=== PATIENT | male | born 2000 | race Caucasian/White ===

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

== ENCOUNTER 2018-03-14 18:10 | Emergency (ER) | payer BC ==
[2018-03-14] MEDS ORDERED: NS 0.9% 1000 ML* 1,000 ML IV ONE (18:26)
--- NOTE | 2018-03-14 18:51 | ED ---
Dizziness - HPI Summary HPI Summary: 17 male presents to ED brought in by ambulance with complaints of dizziness, lightheadedness and nausea that began just prior to arrival while working out. Patient states this is happened to him many times in the past. States he feels dizzy and like a "zombie" daily. Has been trying to see a neurologist for the past couple of months. Denies loss of consciousness. Denies hitting his head or any injuries. States he feels like he is spinning rather than the room is spinning. Is able to walk and bear weight. Admits to a diffuse headache. Denies any recent illness. Past medical history significant for chronic hives and which he takes hydroxyzine daily. No other medications or complaints. No chest pain or shortness of breath. No nausea, vomiting, weakness, numbness/ tingling, memory or concentration loss. No recent trauma or injury. States he does not relate it to any specific movement, position or activity to make his symptoms worse or better. - History Of Current Complaint Chief Complaint: EDDizziness Stated Complaint: DIZZY Time Seen by Provider: 03/14/18 18:35 Hx Obtained From: Patient Onset/Duration: Still Present Timing: Weeks - Months Severity Initially: Mild Severity Currently: Mild Character: Head Spinning, Lightheaded, Dizzy Aggravating Factor(s): Exertion Alleviating Factor(s): Nothing Associated Signs And Symptoms: Positive: Nausea. Negative: Vomiting, Diarrhea, Chest Pain, Palpitations, Unsteady Gait, Visual Changes, Decreased Oral Intake, Change In Medication, Fever, Inability to Walk, Slurred Speech - Allergies/Home Medications Allergies/Adverse Reactions: Allergies Allergy/AdvReac Type Severity Reaction Status Date / Time No Known Allergies Allergy Verified 03/14/18 18:21 Home Medications: Home Medications LevoCETirizine TAB (NF) [Xyzal TAB (NF)] 5 mg PO DAILY 03/14/18 [History Confirmed 03/14/18] hydrOXYzine HCL TAB* [Atarax 10 MG TAB*] 5 mg PO DAILY 03/14/18 [History Confirmed 03/14/18] PMH/Surg Hx/FS Hx/Imm Hx Endocrine/Hematology History: Denies: Hx Anticoagulant Therapy, Hx Diabetes Cardiovascular History: Denies: Hx Hypertension, Other Cardiovascular Problems/Disorders Respiratory History: Reports: Hx Seasonal Allergies - chronic hives Denies: Hx Asthma - Surgical History Surgery Procedure, Year, and Place: Club foot surgeries - Immunization History Immunizations Up to Date: Yes Infectious Disease History: No Infectious Disease History: Denies: Traveled Outside the [place] in Last 30 Days - Family History Known Family History: Positive: Hypertension, Diabetes - Social History Alcohol Use: None Hx Substance Use: No Substance Use Type: Reports: None Hx Tobacco Use: No Smoking Status (MU): Never Smoked Tobacco Review of Systems Constitutional: Negative Eyes: Negative ENT: Negative Cardiovascular: Negative Respiratory: Negative Positive: Nausea Musculoskeletal: Negative Skin: Negative Positive: Weakness - dizziness lightheadedness Positive: Anxious All Other Systems Reviewed And Are Negative: Yes Physical Exam Triage Information Reviewed: Yes Vital Signs On Initial Exam: Initial Vitals Pulse Pulse Ox 86 98 03/14/18 18:15 03/14/18 18:15 Blood pressure 125/62 Respirations 19 Temp 99.4 Vital Signs Reviewed: Yes Appearance: Positive: Well-Appearing, No Pain Distress, Well-Nourished Skin: Positive: Warm, Skin Color Reflects Adequate Perfusion, Dry. Negative: Cold, Numb, Cyanosis @, Pale, Erythema @ Head/Face: Positive: Normal Head/Face Inspection. Negative: Temporal Artery Tenderness, Scalp Eyes: Positive: Normal, EOMI, CHINEDU, Conjunctiva Clear, Other: - No nystagmus, normal visual acuity, normal funduscopic exam although it was limited due to myosis ENT: Positive: Normal ENT inspection, Hearing grossly normal, Pharynx normal, TMs normal, Uvula midline. Negative: Nasal congestion, Nasal drainage, TM bulging, TM dull, TM red, Tonsillar swelling, Tonsillar exudate Dental: Negative: Cervical Lymphadenopathy Neck: Positive: Supple, Nontender, No Lymphadenopathy. Negative: Nuchal Rigidity, Tenderness @ Respiratory/Lung Sounds: Positive: Clear to Auscultation, Breath Sounds Present. Negative: Rales, Rhonchi, Wheezes Cardiovascular: Positive: Normal, RRR, Pulses are Symmetrical in both Upper and Lower Extremities. Negative: Murmur, Rub Abdomen Description: Positive: Nontender, Soft Bowel Sounds: Positive: Present Musculoskeletal: Positive: Normal, Strength/ROM Intact. Negative: Limited @, Interruption @, Abnormal @, Pain @, Edema Left, Edema Right Neurological: Positive: Normal - Normal neurologic exam memory and concentration are intact, Sensory/Motor Intact, Alert, Oriented to Person Place , Time, CN Intact II-III, Reflexes Intact, NV Bundle Intact Distally, Normal Gait, Heel to Toe, Finger to Nose, Facial Symmetry, Speech Normal. Negative: Disoriented, Facial Droop, Slurred Speech, Rhomberg Psychiatric: Positive: Anxious - Pratibha Coma Scale Best Eye Response: 4 - Spontaneous Best Motor Response: 6 - Obeys Commands Best Verbal Response: 5 - Oriented Coma Scale Total: 15 Diagnostics - Vital Signs Vital Signs Temp Pulse Resp BP Pulse Ox 03/14/18 18:49 99 03/14/18 18:17 99.7 F 82 13 122/62 97 03/14/18 18:15 86 98 - Laboratory Result Diagrams: 03/14/18 18:35 03/14/18 18:35 Lab Statement: Any lab studies that have been ordered have been reviewed, and results considered in the medical decision making process. - Radiology chest Xray Interpretation: No Acute Changes - NO EVIDENCE FOR ACUTE DISEASE. Radiology Interpretation Completed By: Radiologist - CT brain CT Interpretation: No Acute Changes - NO EVIDENCE FOR ACUTE INTRACRANIAL ABNORMALITY. CT Interpretation Completed By: Radiologist Re-Evaluation - Re-Evaluation First Eval Re-Evaluation Time: 07:55 Change: Improved - updated on results, feeling better laying down Second Eval Re-Evaluation Time: 20:51 Change: Improved - improved after medication, updated on plan and results, ready to be d/c Dizzy Course/Dx - Course Course Of Treatment: Labs, CT, x-ray obtained all of which were unremarkable without significant finding. Normal physical exam and neurologic exam. Normal vital signs. Given meclizine and Zofran patient had significant relief. Orthostatic vital signs were obtained and negative. Patient was able to walk without difficulty. Patient states she started to feel this way years ago once he began taking antihistamines for his chronic hives. Possible medication side effect due to taking hydroxyzine daily and feeling drowsy. Along with anxiety noted throughout ED stay. Recommended speaking with director of diagnostic imaging about alternatives. Will follow up with neurologist and primary care provider tomorrow other etiologies such as vertigo, bppv, pseudotumor cerebri, cardiac. No other emergent concerns or etiologies at this time. Aware worsening signs and symptoms to watch out for. - Diagnoses Differential Diagnosis/HQI/PQRI: Anxiety, Benign Paroxysmal Positional Vertigo, Vasovagal Reaction, Other - Orthostatic BP, dizziness, lightheadedness, medication side effect Provider Diagnoses: Dizziness, Medication side effect Discharge - Sign-Out/Discharge Documenting (check all that apply): Discharge - Discharge Plan Condition: Improved Disposition: HOME Patient Education Materials: Hydroxyzine (By mouth), Vertigo (ED), Dizziness ( ED) Referrals: [facility] - Jose MORAN [Primary Care Provider] - Matt Slade MD [Medical Doctor] - Additional Instructions: Recommend follow-up with director of diagnostic imaging to discuss other medication options. Increase fluids and stay well-hydrated. Follow-up with PCP for recheck in one week. If symptoms persist or worsen please make an appointment with neurologist. - Billing Disposition and Condition Condition: IMPROVED Disposition: HOME
[2018-03-14 18:59] LABS: ABS Basophils 0 10^3/ul (0-0.2); ABS Eosinophils 0.1 10^3/ul (0-0.6); ABS Lymphocytes 1.5 10^3/ul (1.0-4.8); ABS Monocytes 0.4 10^3/ul (0-0.8); ABS Neutrophils 4.5 10^3/ul (1.5-7.7); ABS Nucleated RBC 0 10^3/ul; Eosinophil % 1.2 % (0-6); Hematocrit 43 % (42-52); Hemoglobin 14.4 g/dl (14.0-18.0); Lymphocyte % 23.7 % (25-47); Mean Corpuscular HGB Conc 33 g/dl (31-36); Mean Corpuscular Hemoglobin 28 pg (27-31); Mean Corpuscular Volume 85 fL (80-94); Mean Platelet Volume 7.7 um3 (7.4-10.4); Nucleated Red Blood Cells % 0; Platelet Count 251 10^3/ul (150-450); Red Blood Count 5.08 10^6/ul (4.0-5.4); Red Cell Distribution Width 14 % (10.5-15); White Blood Count 6.5 10^3/ul (3.5-10.8)
[2018-03-14 19:09] LABS: INR 1.08 (0.77-1.02)
[2018-03-14 19:19] LABS: EGFR Non-African American 103.4 (>60)
--- NOTE | 2018-03-14 19:31 | RAD ---
INDICATION: Dizziness, pressure in the head. COMPARISON: There are no prior studies available for comparison. TECHNIQUE: Contiguous axial sections of the brain were obtained from the skull base to the vertex without contrast. FINDINGS: The ventricles, cisterns and sulci are within normal limits. No significant focal abnormality or mass effect is seen. There is no evidence for hemorrhage. No significant focal osseous abnormality is seen. The visualized portion of the paranasal sinuses and mastoid air cells appear clear. IMPRESSION: NO EVIDENCE FOR ACUTE INTRACRANIAL ABNORMALITY.
--- NOTE | 2018-03-14 19:34 | RAD ---
INDICATION: Near syncope. COMPARISON: Comparison is made with prior chest x-ray study from September 22, 2017. TECHNIQUE: A portable view of the chest was obtained. FINDINGS: Cardiac and mediastinal contours appear to be within normal limits. The lungs are clear. No pleural effusion is seen. IMPRESSION: NO EVIDENCE FOR ACUTE DISEASE.
[2018-03-14] MEDS ORDERED: Meclizine TAB* 12.5 MG PO ONE (20:10)
[2018-03-14] MEDS ORDERED: Ondansetron ODT TAB* 4 MG PO ONE (20:11)
[2018-03-14 21:15] VITALS: BP 116/54
== END 2018-03-14 21:13 | disposition home or self-care (01) ==
LOC: ED 18:10
DX: R42 Dizziness and giddiness (principal); R11.0 Nausea; T43.595A Adverse effect of other antipsychotics and neuroleptics, initial encounter; Y92.9 Unspecified place or not applicable
CPT/HCPCS: 36415; 70450; 71045; 80053; 82550; 82553; 83605; 83690; 83735; 83880; 84443; 84484; 85025; 85610; 85730; 86140; 93005; 96360; 99282; A9270-GY

== ENCOUNTER 2018-04-02 13:26 | Emergency (ER) | payer BC ==
[2018-04-02 14:01] LABS: ABS Basophils 0 10^3/ul (0-0.2); ABS Eosinophils 0.1 10^3/ul (0-0.6); ABS Lymphocytes 1.6 10^3/ul (1.0-4.8); ABS Monocytes 0.4 10^3/ul (0-0.8); ABS Neutrophils 3.8 10^3/ul (1.5-7.7); ABS Nucleated RBC 0 10^3/ul; Hematocrit 43 % (42-52); Hemoglobin 14.6 g/dl (14.0-18.0); Lymphocyte % 27.5 % (25-47); Mean Corpuscular HGB Conc 34 g/dl (31-36); Mean Corpuscular Hemoglobin 29 pg (27-31); Mean Corpuscular Volume 86 fL (80-94); Mean Platelet Volume 7.7 um3 (7.4-10.4); Nucleated Red Blood Cells % 0; Platelet Count 238 10^3/ul (150-450); Red Blood Count 5.03 10^6/ul (4.0-5.4); Red Cell Distribution Width 14 % (10.5-15); White Blood Count 5.9 10^3/ul (3.5-10.8)
[2018-04-02 14:46] LABS: EGFR Non-African American 99.7 (>60)
[2018-04-02 15:34] LABS: Urine Appearance Clear; Urine Blood Negative (Negative); Urine Color Straw; Urine Ketones Negative (Negative); Urine Protein Negative (Negative); Urine Specific Gravity 1.006 (1.010-1.030); Urine Urobilinogen Negative (Negative)
[2018-04-02 20:57] VITALS: BP 115/55
--- NOTE | 2018-04-02 22:47 | ED ---
Sumaya Reeves Nilda, scribed for Luis Sandoval MD on 04/02/18 at 1359 . Psychiatric Complaint - HPI Summary HPI Summary: This patient is a 17 year old M presenting to [facility] with a chief complaint of constant exacerbated severe anxiety for the past few days. Symptoms aggravated by school and alleviated by nothing. Pt states he began Lexapro last week without relief. Pt states he also took old prescription of Ativan today without relief. - History Of Current Complaint Chief Complaint: EDMentalHealth Time Seen by Provider: 04/02/18 13:41 Hx Obtained From: Patient Onset/Duration: Sudden Onset, Lasting Days, Still Present Timing: Constant Severity Currently: Severe Character: Anxious Aggravating Factor(s): Recent Stress Alleviating Factor(s): Nothing Related History: Positive For: Prior Psychiatric Issues Recent Stressor(s): school - Allergies/Home Medications Allergies/Adverse Reactions: Allergies Allergy/AdvReac Type Severity Reaction Status Date / Time No Known Allergies Allergy Verified 04/02/18 13:30 Home Medications: Home Medications Escitalopram Oxalate [Lexapro 10 mg] 10 mg PO DAILY 04/02/18 [History Confirmed 04/02/18] LORazepam TAB(*) [Ativan 0.5 MG TAB (*)] 0.5 mg PO DAILY PRN 04/02/18 [History Confirmed 04/02/18] PMH/Surg Hx/FS Hx/Imm Hx Endocrine/Hematology History: Denies: Hx Anticoagulant Therapy, Hx Diabetes Cardiovascular History: Denies: Hx Hypertension, Other Cardiovascular Problems/Disorders Respiratory History: Reports: Hx Seasonal Allergies - chronic hives Denies: Hx Asthma Psychiatric History: Reports: Hx Anxiety - Surgical History Surgery Procedure, Year, and Place: Club foot surgeries Infectious Disease History: No Infectious Disease History: Denies: Traveled Outside the [place] in Last 30 Days - Family History Known Family History: Positive: Hypertension, Diabetes - Social History Occupation: Student Alcohol Use: None Hx Substance Use: No Substance Use Type: Reports: None Hx Tobacco Use: No Smoking Status (MU): Never Smoked Tobacco Review of Systems Negative: Shortness Of Breath Positive: Anxious All Other Systems Reviewed And Are Negative: Yes Physical Exam - Summary Physical Exam Summary: General: well-appearing, no pain distress Skin: warm, color reflects adequate perfusion, dry Head: normal Eyes: EOMI, CHINEDU ENT: normal Neck: supple, nontender Respiratory: CTA, breath sounds present Cardiovascular: RRR Abdomen: soft, nontender Bowel: present Musculoskeletal: normal, strength/ROM intact Neurological: normal, sensory/motor intact, A&O x3 Psychological: affect/mood appropriate Triage Information Reviewed: Yes Vital Signs On Initial Exam: Initial Vitals Temp Pulse Resp BP Pulse Ox 98.6 F 70 16 126/51 98 04/02/18 13:28 04/02/18 13:28 04/02/18 13:28 04/02/18 13:28 04/02/18 13:28 Vital Signs Reviewed: Yes Diagnostics - Vital Signs Vital Signs Temp Pulse Resp BP Pulse Ox 04/02/18 13:28 98.6 F 70 16 126/51 98 - Laboratory Lab Results: Lab Results 04/02/18 04/02/18 04/02/18 Range/Units 13:51 13:51 15:25 WBC 5.9 (3.5-10.8) 10^3/ul RBC 5.03 (4.0-5.4) 10^6/ul Hgb 14.6 (14.0-18.0) g/dl Hct 43 (42-52) % MCV 86 (80-94) fL MCH 29 (27-31) pg MCHC 34 (31-36) g/dl RDW 14 (10.5-15) % Plt Count 238 (150-450) 10^3/ul MPV 7.7 (7.4-10.4) um3 Neut % (Auto) 63.9 (38-83) % Lymph % (Auto) 27.5 (25-47) % [place] % (Auto) 7.2 H (0-7) % Eos % (Auto) 1.0 (0-6) % Baso % (Auto) 0.4 (0-2) % Absolute Neuts (auto) 3.8 (1.5-7.7) 10^3/ul Absolute Lymphs (auto) 1.6 (1.0-4.8) 10^3/ul Absolute Monos (auto) 0.4 (0-0.8) 10^3/ul Absolute Eos (auto) 0.1 (0-0.6) 10^3/ul Absolute Basos (auto) 0 (0-0.2) 10^3/ul Absolute Nucleated RBC 0 10^3/ul Nucleated RBC % 0 Sodium 139 (139-145) mmol/L Potassium 4.1 (3.5-5.0) mmol/L Chloride 103 (101-111) mmol/L Carbon Dioxide 30 (22-32) mmol/L Anion Gap 6 (2-11) mmol/L BUN 15 (6-24) mg/dL Creatinine 0.97 (0.67-1.17) mg/dL Est GFR ( Amer) 128.2 (>60) Est GFR (Non-Af Amer) 99.7 (>60) BUN/Creatinine Ratio 15.5 (8-20) Glucose 95 (70-100) mg/dL Calcium 10.0 (8.6-10.3) mg/dL Total Bilirubin 0.50 (0.2-1.0) mg/dL AST 23 (13-39) U/L ALT 13 (7-52) U/L Alkaline Phosphatase 55 (34-104) U/L Total Protein 7.9 (6.4-8.9) g/dL Albumin 4.9 (3.2-5.2) g/dL Globulin 3.0 (2-4) g/dL Albumin/Globulin Ratio 1.6 (1-3) TSH 1.33 (0.34-5.60) mcIU/mL Urine Color Straw Urine Appearance Clear Urine pH 6.0 (5-9) Ur Specific Lamar 1.006 L (1.010-1.030) Urine Protein Negative (Negative) Urine Ketones Negative (Negative) Urine Blood Negative (Negative) Urine Nitrate Negative (Negative) Urine Bilirubin Negative (Negative) Urine Urobilinogen Negative (Negative) Ur Leukocyte Esterase Negative (Negative) Urine Glucose Negative (Negative) Salicylates < 2.50 (<30) mg/dL Urine Opiates Screen (None Detect) Acetaminophen < 15 mcg/mL Ur Barbiturates Screen (None Detect) Ur Phencyclidine Scrn (None Detect) Ur Amphetamines Screen (None Detect) U Benzodiazepines Scrn (None Detect) Urine Cocaine Screen (None Detect) U Cannabinoids Screen (None Detect) Serum Alcohol < 10 (<10) mg/dL 04/02/18 Range/Units 15:25 WBC (3.5-10.8) 10^3/ul RBC (4.0-5.4) 10^6/ul Hgb (14.0-18.0) g/dl Hct (42-52) % MCV (80-94) fL MCH (27-31) pg MCHC (31-36) g/dl RDW (10.5-15) % Plt Count (150-450) 10^3/ul MPV (7.4-10.4) um3 Neut % (Auto) (38-83) % Lymph % (Auto) (25-47) % [place] % (Auto) (0-7) % Eos % (Auto) (0-6) % Baso % (Auto) (0-2) % Absolute Neuts (auto) (1.5-7.7) 10^3/ul Absolute Lymphs (auto) (1.0-4.8) 10^3/ul Absolute Monos (auto) (0-0.8) 10^3/ul Absolute Eos (auto) (0-0.6) 10^3/ul Absolute Basos (auto) (0-0.2) 10^3/ul Absolute Nucleated RBC 10^3/ul Nucleated RBC % Sodium (139-145) mmol/L Potassium (3.5-5.0) mmol/L Chloride (101-111) mmol/L Carbon Dioxide (22-32) mmol/L Anion Gap (2-11) mmol/L BUN (6-24) mg/dL Creatinine (0.67-1.17) mg/dL Est GFR ( Amer) (>60) Est GFR (Non-Af Amer) (>60) BUN/Creatinine Ratio (8-20) Glucose (70-100) mg/dL Calcium (8.6-10.3) mg/dL Total Bilirubin (0.2-1.0) mg/dL AST (13-39) U/L ALT (7-52) U/L Alkaline Phosphatase (34-104) U/L Total Protein (6.4-8.9) g/dL Albumin (3.2-5.2) g/dL Globulin (2-4) g/dL Albumin/Globulin Ratio (1-3) TSH (0.34-5.60) mcIU/mL Urine Color Urine Appearance Urine pH (5-9) Ur Specific Lamar (1.010-1.030) Urine Protein (Negative) Urine Ketones (Negative) Urine Blood (Negative) Urine Nitrate (Negative) Urine Bilirubin (Negative) Urine Urobilinogen (Negative) Ur Leukocyte Esterase (Negative) Urine Glucose (Negative) Salicylates (<30) mg/dL Urine Opiates Screen None detected (None Detect) Acetaminophen mcg/mL Ur Barbiturates Screen None detected (None Detect) Ur Phencyclidine Scrn None detected (None Detect) Ur Amphetamines Screen None detected (None Detect) U Benzodiazepines Scrn None detected (None Detect) Urine Cocaine Screen None detected (None Detect) U Cannabinoids Screen None detected (None Detect) Serum Alcohol (<10) mg/dL Result Diagrams: 04/02/18 13:51 04/02/18 13:51 Lab Statement: Any lab studies that have been ordered have been reviewed, and results considered in the medical decision making process. Re-Evaluation - Re-Evaluation First Eval Re-Evaluation Time: 16:30 Comment: Mother called concerned for child. Pt states he is not suicidal but wants further treatment for his severe anxiety. He does not want more benzo. Course/Dx - Course Course Of Treatment: Pt medically cleared for MHE at 14:36. PATIENT DENIES SI, WISHES ADDITIONAL RESOURCES TO IMPROVE HIS ANXIETY. DISCHARGE HOME STABLE. Assessment/Plan: Medications reviewed. - Differential Dx/Clinical Impression Provider Diagnosis: Anxiety Discharge - Sign-Out/Discharge Documenting (check all that apply): Discharge/Admit/Transfer - Discharge Plan Condition: Stable Disposition: HOME Patient Education Materials: Anxiety (ED) Forms: *School Release Referrals: [facility] - Jose MORAN [Primary Care Provider] - Additional Instructions: Per your request, you are cleared for release prior to completion of a mental health evaluation and do not require inpatient psychiatric hospitalization at this time. Please go to nearest emergency room or call 911 if safety concerns arise or condition worsens. We recommend you follow up with your previously scheduled appointment at [facility] on April 04 as you indicated during this visit. IMPORTANT PHONE NUMBERS: [facility] Behavioral Services Unit: [facility] Emergency Room Flex Unit: [facility] Police: [facility]: [place] Police Department: Suicide Prevention and Crisis Services: The Chat: Text (free and confidential online crisis service sponsored by [facility] Suicide Prevention, available Monday-Monday 6pm 9pm) National Suicide Prevention Lifeline: (708) 072-TALK (8089) National Crisis Text Line: Text MAGUI to 580352 [facility] Mental Health Clinic: [facility] Outreach for Older Adults: [facility] Mental Health Association: EFFIE Concepcion [facility]: [facility] Public Safety: [facility]: - During business hours Press 2 for mental health concerns or 3 to schedule an appointment - After business hours Your call will be answered by a brand representative from an answering service, who will connect you with the on-call health care provider within 30 minutes. If you unable to reach the answering service, call the [employer] Police and request that the dispatcher contact the on-call provider directly. - Lets Talk is a drop-in service that offers informal, confidential~ consultation with a [facility] counselor. Counselors hold walk-in hours at various on-campus locations Monday through Monday during the academic year. Stop by any location to speak with a counselor about concerns, get help problem- solving, and learn more about counseling services at [facility] and other resources available to you at [employer]. Dates and locations are listed on the [facility] website. - EARS (Empathy, Assistance and Referral Service) is a peer-led counseling and training program open to all members of the [employer] community and is anonymous, free, confidential. EARS is staffed by undergraduate and international student advisor counselors, as well as [employer] staff. For additional information contact [phone] ([phone]). [facility] is located at [address] [place] [address], at the corner of [facility] and [facility] on [facility] [facility]. Business hours are Monday, Monday, & Monday:~ 8:30 am 5:00 pm; Monday:~ 10:00 am 5:00 pm; Monday: 10:00 am 4:00 pm Students in Crisis: The Kennel Manager The [employer] crisis-management system is coordinated through the Offices of the [employer] for Student and Academic Services and the central station operator, and is affiliated with other units whose responsibilities focus on helping students. Call [employer] Police, [phone], at any time to initiate this process. For each situation, a [employer]roft staff member who is appointed as a crisis manage rarranges for the services of the community support team for groups of students affected by a crisis. arranges for the services of the community support team for groups of students affected by a crisis. consults with, advises, and facilitates communication among individuals and units providing direct support. coordinates the flow of information to appropriate university units while protecting confidentiality and privacy in sensitive personal matters. coordinates the services provided to a student or others affected by the crisis. provides direct service to those affected by the crisis, such as personal support, information, and referrals, and is often the main contact for parents. provides follow-up services when needed. LOCAL PSYCHIATRIST: If you unable to secure an appointment with a psychiatrist at [facility] in the near future and are still interested in discussing anti-anxiety medications, we have provided a list of local psychiatrist you may contact if you desire. Lonny Espinosa MD - Janell Baker MD - Brit Lacy MD - Joann Hatfield - Mamadou Maldonado MD - Delmar Wilson MD - - Billing Disposition and Condition Condition: STABLE Disposition: HOME The documentation as recorded by the Sumaya garcia Nilda accurately reflects the service I personally performed and the decisions made by me, Luis Sandoval MD.
== END 2018-04-02 21:28 | disposition home or self-care (01) ==
LOC: ED 13:26
DX: F41.9 Anxiety disorder, unspecified (principal)
CPT/HCPCS: 36415; 80053; 80307; 80320; 80329; 81003; 84443; 85025; 99282; G0480

== ENCOUNTER 2018-10-29 04:49 | Emergency (ER) | payer BC ==
--- NOTE | 2018-10-29 05:56 | ED ---
Psychiatric Complaint - HPI Summary HPI Summary: Patient is a 18-year-old male who presents emergency Department with complaints of worsening depression and anxiety times several days. Patient notes he was taking Cymbalta and then was switched to Zoloft by his psychiatrist. Per patient's request he was switched back to Cymbalta this week. Patient feels switching medications he has had "internal agitation" and has felt more depressed. Patient notes increase in sleep and was unable to get out of bed yesterday. Patient denies suicidal or homicidal ideations. Patient states he has been admitted for behavioral health in the past. Patient currently sees psychiatrist at [facility]. Symptoms are moderate in severity. No current modifying factors. Denies past medical history. Otherwise denies recent illness. Denies drug or alcohol abuse. - History Of Current Complaint Chief Complaint: EDGeneral Time Seen by Provider: 10/29/18 05:35 Hx Obtained From: Patient - Allergies/Home Medications Allergies/Adverse Reactions: Allergies Allergy/AdvReac Type Severity Reaction Status Date / Time No Known Allergies Allergy Verified 04/02/18 13:30 Home Medications: Home Medications Sertraline HCl [Zoloft] 50 mg PO DAILY 10/29/18 [History Confirmed 10/29/18] clonazePAM [Clonazepam] 0.5 mg PO SEE INSTRUCTIONS 10/29/18 [History Confirmed 10/29/18] PMH/Surg Hx/FS Hx/Imm Hx Previously Healthy: Yes Endocrine/Hematology History: Denies: Hx Anticoagulant Therapy, Hx Diabetes Cardiovascular History: Denies: Hx Hypertension, Other Cardiovascular Problems/Disorders Respiratory History: Reports: Hx Seasonal Allergies - chronic hives Denies: Hx Asthma Psychiatric History: Reports: Hx Anxiety - Surgical History Surgery Procedure, Year, and Place: Club foot surgeries Infectious Disease History: No Infectious Disease History: Denies: Traveled Outside the [place] in Last 30 Days - Family History Known Family History: Positive: Hypertension, Diabetes - Social History Occupation: Student Lives: Dormitory/Roommates Alcohol Use: Rare Hx Substance Use: No Substance Use Type: Reports: None Hx Tobacco Use: No Smoking Status (MU): Never Smoked Tobacco Review of Systems Positive: Fever Eyes: Negative ENT: Negative Cardiovascular: Negative Respiratory: Negative Gastrointestinal: Negative Neurological: Negative Positive: Anxious, Depressed All Other Systems Reviewed And Are Negative: Yes Physical Exam Triage Information Reviewed: Yes Vital Signs On Initial Exam: Initial Vitals Temp Pulse Resp BP Pulse Ox 98.2 F 78 22 102/57 100 10/29/18 04:58 10/29/18 04:58 10/29/18 04:58 10/29/18 04:58 10/29/18 04:58 Vital Signs Reviewed: Yes Appearance: Positive: Well-Appearing - Pt. sitting on bed in NAD. Poor eye contact. Cooperative. Friend present. Skin: Positive: Warm, Dry Head/Face: Positive: Normal Head/Face Inspection Eyes: Positive: Normal, EOMI, CHINEDU, Conjunctiva Clear ENT: Positive: TMs normal Neck: Positive: Supple Respiratory/Lung Sounds: Positive: Clear to Auscultation, Breath Sounds Present Cardiovascular: Positive: Normal, RRR Musculoskeletal: Positive: Normal, Strength/ROM Intact Neurological: Positive: Normal, CN Intact II-III Psychiatric: Positive: Depressed Diagnostics - Vital Signs Vital Signs Temp Pulse Resp BP Pulse Ox 10/29/18 04:58 98.2 F 78 22 102/57 100 - Laboratory Result Diagrams: 10/29/18 06:32 10/29/18 06:32 Lab Statement: Any lab studies that have been ordered have been reviewed, and results considered in the medical decision making process. Course/Dx - Course Course Of Treatment: Pt. presenting for worsening depression and anxiety. Will obtain MHE. Pt. note suicidal or homicidal. Cooperative at this time. Pt. agress with MHE. Pt. underwent MHE and psychiatry was consulted. Pt. was scheduled for a therapy appointment today at 1630. Psychiatrist recommends rx atarax 25mg QID for anxiety. Pt. to return to ER if symptoms change or worsen. At time of dc pt. is sitting on bed laughing with friend. Pt. dc home stable. - Differential Dx/Clinical Impression Differential Diagnosis/HQI/PQRI: Positive: Anxiety, Depression Provider Diagnosis: Anxiety Discharge - Sign-Out/Discharge Documenting (check all that apply): Patient Departure - Discharge Plan Condition: Improved Disposition: HOME Prescriptions: hydrOXYzine HCL TAB* [Atarax 25 MG TAB*] 25 mg PO QID PRN #12 tab PRN Reason: Anxiety Patient Education Materials: Anxiety (ED) Referrals: [facility] [Outside] Additional Instructions: Follow up with your therapy appointment today as scheduled Hydroxyzine as directed for anxiety Return to ER if symptoms change or worsen - Billing Disposition and Condition Condition: IMPROVED Disposition: Home
[2018-10-29 06:19] LABS: Urine Appearance Cloudy; Urine Blood Negative (Negative); Urine Color Yellow; Urine Ketones Negative (Negative); Urine Protein Negative (Negative); Urine Specific Gravity 1.029 (1.010-1.030); Urine Urobilinogen Negative (Negative)
[2018-10-29 06:48] LABS: ABS Basophils 0 10^3/ul (0-0.2); ABS Eosinophils 0.2 10^3/ul (0-0.6); ABS Lymphocytes 1.8 10^3/ul (1.0-4.8); ABS Monocytes 0.5 10^3/ul (0-0.8); ABS Neutrophils 5.9 10^3/ul (1.5-7.7); ABS Nucleated RBC 0 10^3/ul; Eosinophil % 2.3 %; Hematocrit 40 % (42-52); Hemoglobin 13.6 g/dl (14.0-18.0); Lymphocyte % 21.9 %; Mean Corpuscular HGB Conc 34 g/dl (31-36); Mean Corpuscular Hemoglobin 29 pg (27-31); Mean Corpuscular Volume 85 fL (80-94); Mean Platelet Volume 7.3 fL (7.4-10.4); Nucleated Red Blood Cells % 0.1; Platelet Count 265 10^3/ul (150-450); Red Blood Count 4.72 10^6/ul (4.00-5.40); Red Cell Distribution Width 13 % (10.5-15); White Blood Count 8.4 10^3/ul (3.5-10.8)
[2018-10-29] MEDS ORDERED: Ondansetron TAB* 4 MG PO ONE (09:02)
[2018-10-29] MEDS ORDERED: LORazepam TAB(*) 1 MG PO ONE (09:02)
[2018-10-29 14:16] VITALS: BP 103/78
== END 2018-10-29 14:15 | disposition home or self-care (01) ==
LOC: ED 04:49
DX: F41.9 Anxiety disorder, unspecified (principal)
CPT/HCPCS: 36415; 80053; 80307; 80320; 80329; 81003; 84443; 85025; 99284; A9270-GY; G0480

== ENCOUNTER 2019-01-08 23:10 | Emergency (ER) | payer BC ==
[2019-01-08] MEDS ORDERED: NS 0.9% 1000 ML** 1,000 ML IV ONE (23:20)
[2019-01-08] MEDS ORDERED: Ondansetron INJ* 2 MG/ML VIAL IV ONE (23:20)
[2019-01-08] MEDS ORDERED: Metoclopramide IV* 5 MG/ML 2 ML VIAL IV SLOW PU ONE (23:39)
[2019-01-08] MEDS ORDERED: Ketorolac INJ* 30 MG/ML 1 ML VIAL IV PUSH ONE (23:39)
[2019-01-08 23:47] LABS: ABS Basophils 0 10^3/ul (0-0.2); ABS Eosinophils 0 10^3/ul (0-0.6); ABS Lymphocytes 0.6 10^3/ul (1.0-4.8); ABS Neutrophils 9.2 10^3/ul (1.5-7.7); ABS Nucleated RBC 0 10^3/ul; Eosinophil % 0 %; Hematocrit 50 % (42-52); Hemoglobin 17.5 g/dl (14.0-18.0); Lymphocyte % 5.2 %; Mean Corpuscular HGB Conc 35 g/dl (31-36); Mean Corpuscular Hemoglobin 29 pg (27-31); Mean Corpuscular Volume 84 fL (80-94); Mean Platelet Volume 7.5 fL (7.4-10.4); Nucleated Red Blood Cells % 0.1; Platelet Count 324 10^3/ul (150-450); Red Blood Count 6.01 10^6/ul (4.00-5.40); Red Cell Distribution Width 14 % (10.5-15); White Blood Count 10.8 10^3/ul (3.5-10.8)
[2019-01-09 00:05] LABS: Albumin 5.6 g/dL (3.2-5.2); Albumin/Globulin Ratio 1.6 (1-3); BUN/Creatinine Ratio 21.4 (8-20); Calcium 10.4 mg/dL (8.6-10.3); EGFR African American 88.3 (>60); Globulin 3.5 g/dL (2-4); Potassium 3.8 mmol/L (3.5-5.0); Total Bilirubin 0.8 mg/dL (0.2-1.0); Total Protein 9.1 g/dL (6.4-8.9)
[2019-01-09] MEDS ORDERED: NS 0.9% 1000 ML** 1,000 ML IV ONE (00:06)
[2019-01-09] MEDS ORDERED: hydrOXYzine HCL TAB* 10 MG PO ONE (00:07)
--- NOTE | 2019-01-09 00:07 | ED ---
GI/ HPI - HPI Summary HPI Summary: 18-year-old male presents to nausea vomiting diarrhea for the past 24 hours. He admits to generalized abdominal pain. He denies anyone else being sick. Denies eating anything different. States this happened past. Does not smoke any marijuana. Denies any blood in stool. No fevers. No chest pain shortness breath or cough. He states he tried Zofran at home with no relief. He states he feels very weak. Has no medical conditions. - History of Current Complaint Chief Complaint: EDNauseaVomitDiarrh Time Seen by Provider: 01/08/19 23:21 Stated Complaint: NAUSEA/VOMITING Pain Intensity: 3 - Allergy/Home Medications Allergies/Adverse Reactions: Allergies Allergy/AdvReac Type Severity Reaction Status Date / Time No Known Allergies Allergy Verified 04/02/18 13:30 Home Medications: Home Medications hydrOXYzine HCL TAB* [Atarax 25 MG TAB*] 10 mg PO QID PRN 01/08/19 [History Confirmed 01/08/19] PMH/Surg Hx/FS Hx/Imm Hx Endocrine/Hematology History: Denies: Hx Anticoagulant Therapy, Hx Diabetes Cardiovascular History: Denies: Hx Hypertension, Other Cardiovascular Problems/Disorders Respiratory History: Reports: Hx Seasonal Allergies - chronic hives Denies: Hx Asthma Psychiatric History: Reports: Hx Anxiety Denies: Hx Eating Disorder - Surgical History Surgery Procedure, Year, and Place: Club foot surgeries Infectious Disease History: No Infectious Disease History: Denies: Traveled Outside the [place] in Last 30 Days - Family History Known Family History: Positive: Hypertension, Diabetes - Social History Alcohol Use: Rare Hx Substance Use: No Substance Use Type: Reports: None Hx Tobacco Use: No Smoking Status (MU): Never Smoked Tobacco Review of Systems Negative: Fever Negative: Chest Pain Negative: Shortness Of Breath Positive: Abdominal Pain, Vomiting, Diarrhea, Nausea All Other Systems Reviewed And Are Negative: Yes Physical Exam Triage Information Reviewed: Yes Vital Signs On Initial Exam: Initial Vitals Temp Pulse Resp BP Pulse Ox 97.8 F 127 18 136/82 97 01/08/19 23:12 01/08/19 23:12 01/08/19 23:12 01/08/19 23:12 01/08/19 23:12 Vital Signs Reviewed: Yes Appearance: Positive: Well-Appearing Skin: Positive: Warm, Dry Head/Face: Positive: Normal Head/Face Inspection Eyes: Positive: Normal, EOMI, CHINEDU, Conjunctiva Clear ENT: Positive: Normal ENT inspection, Pharynx normal, TMs normal Respiratory/Lung Sounds: Positive: Clear to Auscultation, Breath Sounds Present Cardiovascular: Positive: Normal, RRR Abdomen Description: Positive: Soft, Other: - mild diffuse tenderness Bowel Sounds: Positive: Present Musculoskeletal: Positive: Normal Neurological: Positive: Normal Psychiatric: Positive: Normal Diagnostics - Vital Signs Vital Signs Temp Pulse Resp BP Pulse Ox 01/08/19 23:12 97.8 F 127 18 136/82 97 - Laboratory Lab Results: Lab Results 01/08/19 01/08/19 01/08/19 Range/Units 23:38 23:38 23:38 WBC 10.8 (3.5-10.8) 10^3/ul RBC 6.01 H (4.00-5.40) 10^6/ul Hgb 17.5 (14.0-18.0) g/dl Hct 50 (42-52) % MCV 84 (80-94) fL MCH 29 (27-31) pg MCHC 35 (31-36) g/dl RDW 14 (10.5-15) % Plt Count 324 (150-450) 10^3/ul MPV 7.5 (7.4-10.4) fL Neut % (Auto) 85.4 % Lymph % (Auto) 5.2 % [place] % (Auto) 9.1 % Eos % (Auto) 0 % Baso % (Auto) 0.3 % Absolute Neuts (auto) 9.2 H (1.5-7.7) 10^3/ul Absolute Lymphs (auto) 0.6 L (1.0-4.8) 10^3/ul Absolute Monos (auto) 1.0 H (0-0.8) 10^3/ul Absolute Eos (auto) 0 (0-0.6) 10^3/ul Absolute Basos (auto) 0 (0-0.2) 10^3/ul Absolute Nucleated RBC 0 10^3/ul Nucleated RBC % 0.1 Sodium 136 (135-145) mmol/L Potassium 3.8 (3.5-5.0) mmol/L Chloride 101 (101-111) mmol/L Carbon Dioxide 19 L (22-32) mmol/L Anion Gap 16 H (2-11) mmol/L BUN 27 H (6-24) mg/dL Creatinine 1.26 H (0.67-1.17) mg/dL Est GFR ( Amer) 88.3 (>60) Est GFR (Non-Af Amer) 73.0 (>60) BUN/Creatinine Ratio 21.4 H (8-20) Glucose 125 H (70-100) mg/dL Lactic Acid 1.7 (0.5-2.0) mmol/L Calcium 10.4 H (8.6-10.3) mg/dL Total Bilirubin 0.80 (0.2-1.0) mg/dL AST 32 (13-39) U/L ALT 32 (7-52) U/L Alkaline Phosphatase 70 (34-104) U/L C-Reactive Protein 11.00 H (<8.01) mg/L Total Protein 9.1 H (6.4-8.9) g/dL Albumin 5.6 H (3.2-5.2) g/dL Globulin 3.5 (2-4) g/dL Albumin/Globulin Ratio 1.6 (1-3) Lipase 41 (11.0-82.0) U/L Result Diagrams: 01/08/19 23:38 01/08/19 23:38 Lab Statement: Any lab studies that have been ordered have been reviewed, and results considered in the medical decision making process. Re-Evaluation - Re-Evaluation First Eval Change: Worse Comment: is anxious from reglan Second Eval Re-Evaluation Time: 01:07 Change: Improved Comment: nausea resolved GIGU Course/Dx - Course Course Of Treatment: 18-year-old male presents to nausea vomiting diarrhea for the past 24 hours. He admits to generalized abdominal pain. He denies anyone else being sick. Denies eating anything different. States this happened past. Does not smoke any marijuana. Denies any blood in stool. No fevers. No chest pain shortness breath or cough. He states he tried Zofran at home with no relief. He states he feels very weak. Has no medical conditions. On exam has mild diffuse bowel pain. white blood cell count normal. Kidney function is elevated likely due to dehydration. Gave fluids and feeling better. Gave her Reglan and Benadryl and nausea resolved. Patient feels comfortable going home. We'll discharge with Reglan. Patient understands and agrees plan. - Diagnoses Differential Diagnoses - Male: Gastroenteritis (Bacterial), Gastroenteritis ( Viral), Urinary Tract Infection Provider Diagnoses: Nausea vomiting and diarrhea Discharge - Sign-Out/Discharge Documenting (check all that apply): Patient Departure Patient Received Moderate/Deep Sedation with Procedure: No - Discharge Plan Condition: Good Disposition: HOME Prescriptions: Metoclopramide TAB* [Reglan TAB*] 10 mg PO Q6H PRN #12 tab PRN Reason: Nausea Patient Education Materials: Acute Nausea and Vomiting (ED) Referrals: No Primary Care Phys,NOPCP [Primary Care Provider] - Additional Instructions: Can take reglan every 6 hours as needed for nausea Drink small amounts of fluid as tolerated When able to eat follow BRAT diet: Bananas, rice, applesauce, toast Take ibuprofen or Tylenol for pain as needed every 6 hours Return to ED if develop fever that does not respond to Tylenol or ibuprofen, severe abdominal pain, or any new or worsening symptoms - Billing Disposition and Condition Condition: GOOD Disposition: Home
[2019-01-09] MEDS ORDERED: diPHENhydraMINE PO* 25 MG PO ONE (00:10)
[2019-01-09] MEDS ORDERED: diPHENhydraMINE PO* 25 MG ONE (00:13)
[2019-01-09 00:27] LABS: Influenza A Molecular NEGATIVE (Negative); Influenza B Molecular NEGATIVE (Negative)
[2019-01-09 01:20] VITALS: BP 115/58
== END 2019-01-09 01:32 | disposition home or self-care (01) ==
LOC: ED 23:10
DX: R11.2 Nausea with vomiting, unspecified (principal); R19.7 Diarrhea, unspecified; R10.84 Generalized abdominal pain; F41.9 Anxiety disorder, unspecified
CPT/HCPCS: 36415; 80053; 83605; 83690; 85025; 86140; 96374; 96375; 99283; A9270-GY; J1885; J2405; J2765